=== PATIENT | male | born 1965 | race Caucasian/White ===

== ENCOUNTER 2016-11-04 22:48 | Inpatient (IN) | payer OTHER ==
[~2016-11-04] VITALS: Ht 188 cm; Wt 134.0 kg
[~2016-11-04 22:48] MED LIST: BAC PO; CEPHALEXIN500 MG PO; FUROSEMIDE80 MG PO; HYDROCODONE-ACETAMIN PO; LAC PO; LOM PO; LOMOTIL1 TAB PO; MACROBID100 MG PO; NEP PO; NOR5 PO; PRI20 PO; RENA-VITE1 TAB PO; RENAGEL; RENAGEL800 M1 PO; SENSIPAR90 MG PO; ZOLPIDEM5 M1 PO; [UNRECOGNIZED DRUG - OTHER]
[2016-11-05 00:35] LABS: BASOPHIL % 0.2 % (0-2); PLATELET COUNT 168 x10^3mcL (130-400); RED CELL DISTRIBUTION WIDTH 14.2 % (11.5-14.5)
[2016-11-05 00:41] LABS: BILIRUBIN TOTAL 0.5 mg/dL (0.20-1.00); CALCIUM 9.8 mg/dL (8.5-10.1); CARBON DIOXIDE 32.9 mmol/L (21-32); PHOSPHOROUS 3.4 mg/dL (2.5-4.9); POTASSIUM SERUM 3.8 mmol/L (3.5-5.1)
[2016-11-05 00:42] LABS: TOTAL PROTEIN, SERUM 8.6 g/dL (6.4-8.2)
[2016-11-05 00:43] LABS: CREATININE SERUM 7.4 mg/dL (0.7-1.3)
[2016-11-05 01:44] LABS: microscopic required? YES; urine erythrocyte 2+ (NEGATIVE)
[2016-11-05 02:44] LABS: AMYLASE 53 U/L (25-115); CHOLESTEROL 166 mg/dL (<200); LIPASE 204 IU/L (73-393)
[2016-11-05 02:54] LABS: FREE T4 0.99 ng/dL (0.76-1.46); FREE THYROXINE INDEX 3.2 ug/dL (1.4-4.5); T3 TOTAL 0.99 ng/mL; T4(THYROXINE) 8.5 ug/dL (4.7-13.3)
[2016-11-05 03:04] VITALS: BP 138/70
[2016-11-05 04:10] LABS: CHOLESTEROL/HDL RATIO 6.9; HDL CHOLESTEROL 24 mg/dL (40-60); TRIGLYCERIDES 559 mg/dL (<150)
[2016-11-05] MEDS ORDERED: LISINOPRIL10 MG PO (04:16)
[2016-11-05] MEDS ORDERED: VELPHORO500 MG PO (04:16)
[2016-11-05] MEDS ORDERED: RENVELA800 M1 PO (04:17)
[2016-11-05 05:00] LABS: BASOPHIL % 0.2 % (0-2); PLATELET COUNT 155 x10^3mcL (130-400); RED CELL DISTRIBUTION WIDTH 14.4 % (11.5-14.5)
[2016-11-05 06:21] VITALS: BP 122/82
[2016-11-05 07:43] LABS: AMPHETAMINE QUAL UR NONE DETECTED (NEG <=1000)
[2016-11-05 10:36] VITALS: BP 112/69
[2016-11-05 14:48] VITALS: BP 96/52
[2016-11-05 18:37] VITALS: BP 113/72
[2016-11-05 21:13] VITALS: BP 137/69
[2016-11-06 05:31] VITALS: BP 106/61
[2016-11-06 06:25] LABS: BASOPHIL % 0.6 % (0-2); PLATELET COUNT 142 x10^3mcL (130-400); RED CELL DISTRIBUTION WIDTH 14.4 % (11.5-14.5)
[2016-11-06 06:33] LABS: CALCIUM 9.6 mg/dL (8.5-10.1); CARBON DIOXIDE 27.9 mmol/L (21-32); POTASSIUM SERUM 4.5 mmol/L (3.5-5.1)
[2016-11-06 06:45] LABS: CREATININE SERUM 11.8 mg/dL (0.7-1.3)
[2016-11-06 10:19] VITALS: BP 126/74
[2016-11-06 13:44] VITALS: BP 94/57
[2016-11-06] MEDS ORDERED: LEVAQUIN750 MG PO (16:49)
[2016-11-06] MEDS ORDERED: BD LACTINEX1.4 MG PO (16:50)
[2016-11-06 17:03] VITALS: BP 94/57
[2016-11-06 17:59] VITALS: BP 109/62
[2016-11-07] MEDS ORDERED: BACTRIM1 TAB PO (12:53)
== END 2016-11-06 17:55 | disposition home or self-care (01) | DRG 463 ==
LOC: ED 22:48 → DU 11-05 01:51
PROVIDERS: Emergency Medicine; Family Medicine; ADMIT Family Medicine
PROC: 5A1D00Z (ICD-10-PCS; principal; 2016-11-06)
DX: N39.0 Urinary tract infection, site not specified (principal); N17.0 Acute kidney failure with tubular necrosis; E87.1 Hypo-osmolality and hyponatremia; E87.8 Other disorders of electrolyte and fluid balance, not elsewhere classified; E11.9 Type 2 diabetes mellitus without complications; B96.20 Unspecified Escherichia coli [E. coli] as the cause of diseases classified elsewhere; I12.0 Hypertensive chronic kidney disease with stage 5 chronic kidney disease or end stage renal disease; N18.6 End stage renal disease; E66.3 Overweight; Z99.2 Dependence on renal dialysis; Z87.891 Personal history of nicotine dependence; Z83.3 Family history of diabetes mellitus; Z82.49 Family history of ischemic heart disease and other diseases of the circulatory system; Z68.37 Body mass index [BMI] 37.0-37.9, adult
CPT/HCPCS: 82962; 83880; 84439; A4719; J2543; J3490; J7030; Q0092

== ENCOUNTER 2017-08-06 07:45 | Inpatient (IN) | payer OTHER ==
[~2017-08-06] VITALS: Ht 188 cm; Wt 136.6 kg
[~2017-08-06 07:45] MED LIST changes: +BACTRIM1 TAB PO; +BD LACTINEX1.4 MG PO; +LEVAQUIN750 MG PO; +LISINOPRIL10 MG PO; +RENVELA800 M1 PO; +VELPHORO500 MG PO
[2017-08-06 08:57] LABS: UA SPECIFIC GRAVITY 1.025 (1.005-1.035); microscopic required? YES; urine erythrocyte 1+ (NEGATIVE)
[2017-08-06 09:10] LABS: BASOPHIL % 0.1 % (0-2); PLATELET COUNT 362 x10^3mcL (130-400); RED CELL DISTRIBUTION WIDTH 14.4 % (11.5-14.5)
[2017-08-06 09:59] LABS: POTASSIUM SERUM 4.8 mmol/L (3.5-5.1)
[2017-08-06 10:00] LABS: CALCIUM 10.8 mg/dL (8.5-10.1); CARBON DIOXIDE 29.2 mmol/L (21-32)
[2017-08-06 10:02] LABS: BILIRUBIN TOTAL 0.46 mg/dL (0.20-1.00); CREATININE SERUM 10.6 mg/dL (0.7-1.3); TOTAL PROTEIN, SERUM 7.3 g/dL (6.4-8.2)
[2017-08-06 10:03] LABS: ALBUMIN 2.6 g/dL (3.4-5.0)
[2017-08-06] MEDS ORDERED: LISINOPRIL10 MG PO (10:27)
[2017-08-06] MEDS ORDERED: IBUPROFEN400 MG PO (10:28)
[2017-08-06] MEDS ORDERED: FLA500 PO (10:28)
[2017-08-06] MEDS ORDERED: RENAGEL800 M1 PO (10:28)
[2017-08-06] MEDS ORDERED: NORCO1 TA2 PO (10:29)
[2017-08-06] MEDS ORDERED: LEVOFLOXACIN500 M1 PO (10:29)
[2017-08-06] MEDS ORDERED: DOXYCYCLINE HY100 MG PO (10:30)
[2017-08-06 12:20] VITALS: BP 207/103
[2017-08-06 12:24] LABS: T3 TOTAL 0.66 ng/mL
[2017-08-06 12:33] LABS: MAGNESIUM 2.3 mg/dL (1.8-2.4); PHOSPHOROUS 7.9 mg/dL (2.5-4.9)
[2017-08-06 12:38] LABS: CHOLESTEROL/HDL RATIO 5.2
[2017-08-06 12:39] LABS: FREE T4 1.28 ng/dL (0.76-1.46); FREE THYROXINE INDEX 2.9 ug/dL (1.4-4.5); T4(THYROXINE) 7.9 ug/dL (4.7-13.3)
[2017-08-06 13:33] VITALS: BP 182/97
[2017-08-06 17:30] VITALS: BP 205/108
[2017-08-06 18:59] LABS: AMPHETAMINE QUAL UR NONE DETECTED (NEG <=1000)
[2017-08-06 21:07] VITALS: BP 178/102
[2017-08-06 22:52] VITALS: BP 163/92
[2017-08-07] VITALS (7 sets, daily range): BP systolic 144–166; BP diastolic 78–88
[2017-08-07 06:55] LABS: PLATELET COUNT 341 x10^3mcL (130-400)
[2017-08-07 07:21] LABS: BASOPHIL % 0 % (0-2); RED CELL DISTRIBUTION WIDTH 14.6 % (11.5-14.5)
[2017-08-07 08:01] LABS: CALCIUM 9.9 mg/dL (8.5-10.1); CARBON DIOXIDE 26.4 mmol/L (21-32); URIC ACID 9.3 mg/dL (3.5-7.2)
[2017-08-07 08:04] LABS: POTASSIUM SERUM 7.1 mmol/L (3.5-5.1)
[2017-08-07 08:05] LABS: CREATININE SERUM 12.8 mg/dL (0.7-1.3)
[2017-08-08 05:36] VITALS: BP 152/80
[2017-08-08 06:46] LABS: BASOPHIL % 0.4 % (0-2); PLATELET COUNT 368 x10^3mcL (130-400)
[2017-08-08 06:52] LABS: RED CELL DISTRIBUTION WIDTH 14.6 % (11.5-14.5)
[2017-08-08 06:53] LABS: CALCIUM 9.2 mg/dL (8.5-10.1); CARBON DIOXIDE 30.2 mmol/L (21-32)
[2017-08-08 10:32] VITALS: BP 157/82
[2017-08-08] MEDS ORDERED: BACTRIM DS1 TAB PO (13:39)
[2017-08-10 15:17] VITALS: Ht 188 cm; Wt 136.6 kg
== END 2017-08-08 14:27 | disposition home or self-care (01) | DRG 483 ==
LOC: ED 07:45 → DU 10:34
PROVIDERS: Emergency Medicine; Family Medicine; Internal Medicine; Student in an Organized Health Care Education/Training Program; Urology
PROC: 02HV33Z Insertion of Infusion Device into Superior Vena Cava, Percutaneous Approach (ICD-10-PCS; 2017-08-06)
PROC: B548ZZA Ultrasonography of Superior Vena Cava, Guidance (ICD-10-PCS; 2017-08-06)
PROC: 0VT90ZZ Resection of Right Testis, Open Approach (ICD-10-PCS; principal; 2017-08-06 18:30)
PROC: 5A1D70Z Performance of Urinary Filtration, Intermittent, Less than 6 Hours Per Day (ICD-10-PCS; 2017-08-07)
DX: N50.1 Vascular disorders of male genital organs (principal); N17.0 Acute kidney failure with tubular necrosis; N18.6 End stage renal disease; N45.1 Epididymitis; I12.0 Hypertensive chronic kidney disease with stage 5 chronic kidney disease or end stage renal disease; E11.22 Type 2 diabetes mellitus with diabetic chronic kidney disease; D64.9 Anemia, unspecified; Z53.29 Procedure and treatment not carried out because of patient's decision for other reasons; Z83.3 Family history of diabetes mellitus; Z82.49 Family history of ischemic heart disease and other diseases of the circulatory system; E83.39 Other disorders of phosphorus metabolism
CPT/HCPCS: 83880; 84439; 87491; 87591; 94150; J0360; J0885-EC; J1642; J1885; J2060; J2250; J2270; J2543; J3010; J3490; J7030; Q0092

== ENCOUNTER 2017-08-16 06:26 | Inpatient (IN) | payer OTHER ==
[~2017-08-16] VITALS: Ht 188 cm; Wt 136.1 kg
[~2017-08-16 06:26] MED LIST changes: +BACTRIM DS1 TAB PO; +DOXYCYCLINE HY100 MG PO; +FLA500 PO; +IBUPROFEN400 MG PO; +LEVOFLOXACIN500 M1 PO; +NORCO1 TA2 PO
[2017-08-16 07:32] LABS: PLATELET COUNT 460 x10^3mcL (130-400); RED CELL DISTRIBUTION WIDTH 15.2 % (11.5-14.5)
[2017-08-16 07:52] LABS: BILIRUBIN TOTAL 0.61 mg/dL (0.20-1.00); CALCIUM 10.1 mg/dL (8.5-10.1); CARBON DIOXIDE 23.8 mmol/L (21-32); POTASSIUM SERUM 4.8 mmol/L (3.5-5.1); TOTAL PROTEIN, SERUM 7.3 g/dL (6.4-8.2)
[2017-08-16 08:01] LABS: ALBUMIN 2.9 g/dL (3.4-5.0); CREATININE SERUM 12.3 mg/dL (0.7-1.3)
[2017-08-16 09:41] LABS: CHOLESTEROL/HDL RATIO 2.8; MAGNESIUM 2.2 mg/dL (1.8-2.4); PHOSPHOROUS 7.7 mg/dL (2.5-4.9)
[2017-08-16 09:49] LABS: T3 TOTAL 0.84 ng/mL
[2017-08-16 09:52] LABS: FREE T4 1.19 ng/dL (0.76-1.46); FREE THYROXINE INDEX 2.7 ug/dL (1.4-4.5); T4(THYROXINE) 7.1 ug/dL (4.7-13.3)
[2017-08-16 10:01] LABS: BAND NEUTROPHIL 3 % (0-10); BASOPHIL 0 % (0-2); MONOCYTE 12 % (0-7); SEGMENTED NEUTROPHILS 67 % (37-75)
[2017-08-16 10:02] LABS: PLATELET MORPHOLOGY PLATELETS INCREASED; rbc morphology (normal/abnorm) ABNORMAL (NORMAL)
[2017-08-16 12:18] VITALS: Ht 188 cm; Wt 136.1 kg
[2017-08-16 14:04] VITALS: BP 105/64
[2017-08-16 14:59] VITALS: BP 176/98
[2017-08-16 17:36] LABS: UA SPECIFIC GRAVITY 1.015 (1.005-1.035); microscopic required? YES; urine erythrocyte 3+ (NEGATIVE)
[2017-08-16 17:53] LABS: AMPHETAMINE QUAL UR NONE DETECTED (NEG <=1000)
[2017-08-16 18:09] VITALS: BP 164/77
[2017-08-16 21:24] VITALS: BP 148/79
[2017-08-17 06:04] VITALS: BP 132/77
[2017-08-17 06:16] LABS: CALCIUM 9.5 mg/dL (8.5-10.1); CARBON DIOXIDE 30.1 mmol/L (21-32); PHOSPHOROUS 8.6 mg/dL (2.5-4.9)
[2017-08-17 07:03] LABS: CREATININE SERUM 10.7 mg/dL (0.7-1.3); POTASSIUM SERUM 5.8 mmol/L (3.5-5.1)
[2017-08-17 07:33] LABS: BASOPHIL % 0.5 % (0-2); PLATELET COUNT 283 x10^3mcL (130-400)
[2017-08-17 07:38] LABS: RED CELL DISTRIBUTION WIDTH 15.4 % (11.5-14.5)
[2017-08-17 08:00] VITALS: BP 107/68
[2017-08-17 09:24] VITALS: BP 153/80
[2017-08-17 10:43] LABS: rbc morphology (normal/abnorm) ABNORMAL (NORMAL)
[2017-08-17 11:59] VITALS: BP 153/80
[2017-08-17 12:32] LABS: rbc morphology (normal/abnorm) NORMAL (NORMAL)
[2017-08-17] MEDS ORDERED: NEP PO (13:46)
[2017-08-17] MEDS ORDERED: METOPROLOL TART25 M1 PO (13:48)
[2017-08-17] MEDS ORDERED: LAC PO (13:50)
[2017-08-17] MEDS ORDERED: CEFTRIAXON1 GM/50 ML IV (13:50)
[2017-08-17 16:40] VITALS: BP 153/80
[2017-08-17 17:24] VITALS: BP 159/86
== END 2017-08-17 19:45 | disposition short-term general hospital (02) | DRG 468 ==
LOC: ED 06:26 → DU 09:28
PROVIDERS: Emergency Medicine; Family Medicine
PROC: 30233N1 Transfusion of Nonautologous Red Blood Cells into Peripheral Vein, Percutaneous Approach (ICD-10-PCS; principal; 2017-08-17)
DX: N28.89 Other specified disorders of kidney and ureter (principal); E11.22 Type 2 diabetes mellitus with diabetic chronic kidney disease; E44.0 Moderate protein-calorie malnutrition; I12.0 Hypertensive chronic kidney disease with stage 5 chronic kidney disease or end stage renal disease; E83.39 Other disorders of phosphorus metabolism; N39.0 Urinary tract infection, site not specified; N17.0 Acute kidney failure with tubular necrosis; N18.6 End stage renal disease; Z99.2 Dependence on renal dialysis; Z82.49 Family history of ischemic heart disease and other diseases of the circulatory system; Z83.3 Family history of diabetes mellitus; D64.9 Anemia, unspecified; Z68.39 Body mass index [BMI] 39.0-39.9, adult; E66.01 Morbid (severe) obesity due to excess calories
CPT/HCPCS: 84439; J0696; J0885-EC; J2270; J2405; J7030; J7050; P9016; Q0092; Q0163

== ENCOUNTER 2019-04-30 17:56 | Emergency (ER) | payer OTHER ==
[~2019-04-30] VITALS: Ht 182.9 cm; Wt 124.7 kg
[~2019-04-30 17:56] MED LIST changes: +CEFTRIAXON1 GM/50 ML IV; +METOPROLOL TART25 M1 PO
[2019-04-30 18:07] VITALS: Ht 182.9 cm; Wt 124.7 kg
[2019-04-30 18:48] LABS: BASOPHIL % 0.6 % (0-2); PLATELET COUNT 155 x10^3mcL (130-400); RED CELL DISTRIBUTION WIDTH 16.5 % (11.5-14.5)
[2019-04-30 19:10] LABS: ALBUMIN 3.6 g/dL (3.4-5.0); BILIRUBIN TOTAL 0.4 mg/dL (0.20-1.00); CALCIUM 8.6 mg/dL (8.5-10.1); CARBON DIOXIDE 31.3 mmol/L (21-32); POTASSIUM SERUM 3.7 mmol/L (3.5-5.1); TOTAL PROTEIN, SERUM 7.9 g/dL (6.4-8.2)
[2019-04-30 19:12] LABS: CREATININE SERUM 8.4 mg/dL (0.7-1.3)
[2019-04-30 20:47] VITALS: BP 144/87
== END 2019-04-30 20:47 | disposition home or self-care (01) ==
LOC: ED 17:56
PROVIDERS: Emergency Medicine
DX: B34.9 Viral infection, unspecified (principal); I12.0 Hypertensive chronic kidney disease with stage 5 chronic kidney disease or end stage renal disease; N18.6 End stage renal disease
CPT/HCPCS: 36415; 87804; J0696

== ENCOUNTER 2019-11-24 14:56 | Inpatient (IN) | payer OTHER ==
[~2019-11-24] VITALS: Ht 172.7 cm; Wt 129.7 kg
[2019-11-24 15:10] VITALS: Ht 172.7 cm; Wt 129.7 kg
[2019-11-24 16:32] LABS: BASOPHIL % 0.4 % (0-2); PLATELET COUNT 137 x10^3mcL (130-400)
[2019-11-24 16:34] LABS: RED CELL DISTRIBUTION WIDTH 16.7 % (11.5-14.5)
[2019-11-24 16:52] LABS: ALBUMIN 3.4 g/dL (3.4-5.0); ALKALINE PHOSPHATASE 282 U/L (46-116); ALT/SGPT 15 U/L (16-63); AST/SGOT 10 U/L (15-37); BILIRUBIN TOTAL 0.7 mg/dL (0.20-1.00); C REACTIVE PROTEIN 5.9 mg/dL (<=0.9); CALCIUM 9.1 mg/dL (8.5-10.1); CARBON DIOXIDE 19.8 mmol/L (21-32); CHLORIDE SERUM 96 mmol/L (98-107); GLUCOSE SERUM 75 mg/dL (74-106); LACTIC DEHYDROGENASE (LDH) 219 U/L (100-190); SODIUM SERUM 131 mmol/L (136-145); TOTAL PROTEIN, SERUM 7.4 g/dL (6.4-8.2)
[2019-11-24 16:58] LABS: CREATININE SERUM 15.6 mg/dL (0.7-1.3); GFR1 3 mL/min
[2019-11-25] VITALS (9 sets, daily range): BP systolic 113–188; BP diastolic 35–89
[2019-11-25 10:56] LABS: BASOPHIL % 0.1 % (0-2); PLATELET COUNT 125 x10^3mcL (130-400); RED CELL DISTRIBUTION WIDTH 16.8 % (11.5-14.5)
[2019-11-25 12:20] LABS: CALCIUM 9.7 mg/dL (8.5-10.1); CARBON DIOXIDE 19.3 mmol/L (21-32)
[2019-11-25 12:25] LABS: CHOLESTEROL/HDL RATIO 3.7
[2019-11-25 12:26] LABS: POTASSIUM SERUM 7.8 mmol/L (3.5-5.1)
[2019-11-26 01:46] LABS: CALCIUM 9.1 mg/dL (8.5-10.1); POTASSIUM SERUM 5.2 mmol/L (3.5-5.1)
[2019-11-26 01:48] LABS: CREATININE SERUM 13.6 mg/dL (0.7-1.3)
[2019-11-26 06:03] VITALS: BP 105/67
[2019-11-26 08:28] LABS: BASOPHIL % 0.2 % (0-2)
[2019-11-26 08:37] LABS: PLATELET COUNT 93 x10^3mcL (130-400); RED CELL DISTRIBUTION WIDTH 16.3 % (11.5-14.5)
[2019-11-26 08:50] LABS: CALCIUM 9.1 mg/dL (8.5-10.1); CARBON DIOXIDE 26.6 mmol/L (21-32); POTASSIUM SERUM 5.1 mmol/L (3.5-5.1)
[2019-11-26 08:53] LABS: CREATININE SERUM 14.4 mg/dL (0.7-1.3)
[2019-11-26 09:37] VITALS: BP 124/74
[2019-11-26 17:30] VITALS: BP 140/79
[2019-11-26 21:20] VITALS: BP 98/52
[2019-11-27 05:28] VITALS: BP 106/58
[2019-11-27 07:28] LABS: BASOPHIL % 0.1 % (0-2)
[2019-11-27 07:45] LABS: PLATELET COUNT 91 x10^3mcL (130-400)
[2019-11-27 07:52] LABS: CALCIUM 8.5 mg/dL (8.5-10.1); CARBON DIOXIDE 23.9 mmol/L (21-32); POTASSIUM SERUM 5.3 mmol/L (3.5-5.1)
[2019-11-27 07:59] LABS: CREATININE SERUM 16.4 mg/dL (0.7-1.3)
[2019-11-27 08:29] VITALS: BP 103/56
[2019-11-27 13:36] VITALS: BP 138/49
[2019-11-27 16:27] VITALS: BP 152/50
[2019-11-27 20:43] VITALS: BP 124/62
[2019-11-28 04:57] VITALS: BP 103/59
[2019-11-28 08:09] LABS: BASOPHIL % 0.1 % (0-2)
[2019-11-28 08:10] VITALS: BP 99/58
[2019-11-28 08:20] LABS: CALCIUM 8.1 mg/dL (8.5-10.1); CARBON DIOXIDE 21.9 mmol/L (21-32); PLATELET COUNT 93 x10^3mcL (130-400); POTASSIUM SERUM 5.3 mmol/L (3.5-5.1); RED CELL DISTRIBUTION WIDTH 16.5 % (11.5-14.5)
[2019-11-28 17:04] VITALS: BP 114/61
[2019-11-28 20:16] VITALS: BP 122/53
[2019-11-29 04:55] VITALS: BP 157/73
[2019-11-29 06:59] LABS: BASOPHIL % 0.1 % (0-2)
[2019-11-29 07:22] LABS: PLATELET COUNT 109 x10^3mcL (130-400)
[2019-11-29 08:46] LABS: CALCIUM 8.6 mg/dL (8.5-10.1); CARBON DIOXIDE 19.8 mmol/L (21-32); POTASSIUM SERUM 5.1 mmol/L (3.5-5.1)
[2019-11-29 08:51] LABS: CREATININE SERUM 15.2 mg/dL (0.7-1.3)
[2019-11-29 09:15] VITALS: BP 111/56
[2019-11-29 13:21] VITALS: BP 96/54
[2019-11-29 17:16] VITALS: BP 140/80
[2019-11-29 20:37] VITALS: BP 134/63
[2019-11-29 22:31] VITALS: BP 136/68
[2019-11-30 05:15] VITALS: BP 107/51
[2019-11-30 09:32] VITALS: BP 126/59
[2019-11-30 12:10] LABS: PLATELET COUNT 148 x10^3mcL (130-400)
[2019-11-30 12:16] LABS: CALCIUM 8.7 mg/dL (8.5-10.1); CARBON DIOXIDE 25.1 mmol/L (21-32); POTASSIUM SERUM 4.7 mmol/L (3.5-5.1)
[2019-11-30 12:18] LABS: CREATININE SERUM 12.8 mg/dL (0.7-1.3)
[2019-11-30 12:24] LABS: RED CELL DISTRIBUTION WIDTH 16.7 % (11.5-14.5)
[2019-11-30 13:10] LABS: BAND NEUTROPHIL 0 % (0-10); MONOCYTE 10 % (0-7); SEGMENTED NEUTROPHILS 79 % (37-75); rbc morphology (normal/abnorm) NORMAL (NORMAL)
[2019-11-30 14:23] VITALS: BP 150/64
[2019-11-30 18:50] VITALS: BP 140/70
[2019-11-30 22:23] VITALS: BP 141/65
[2019-12-01 05:25] VITALS: BP 124/64
[2019-12-01 09:15] VITALS: BP 133/69
[2019-12-01 13:09] VITALS: BP 147/77
[2019-12-01 14:00] VITALS: BP 136/103
[2019-12-01 22:16] VITALS: BP 148/79
[2019-12-02 06:17] VITALS: BP 154/80
[2019-12-02 09:58] VITALS: BP 179/78
[2019-12-02 13:37] VITALS: BP 177/93
[2019-12-02 17:23] LABS: PLATELET COUNT 346 x10^3mcL (130-400)
[2019-12-02 17:42] LABS: RED CELL DISTRIBUTION WIDTH 16.7 % (11.5-14.5)
[2019-12-02 18:17] VITALS: BP 162/96
[2019-12-02 18:17] LABS: BAND NEUTROPHIL 4 % (0-10); BASOPHIL 4 % (0-2); MONOCYTE 9 % (0-7); SEGMENTED NEUTROPHILS 73 % (37-75); rbc morphology (normal/abnorm) NORMAL (NORMAL)
[2019-12-02 19:08] LABS: CALCIUM 8.8 mg/dL (8.5-10.1); CARBON DIOXIDE 18.7 mmol/L (21-32)
[2019-12-02 19:11] LABS: CREATININE SERUM 12.6 mg/dL (0.7-1.3); POTASSIUM SERUM 5.8 mmol/L (3.5-5.1)
[2019-12-02 20:54] VITALS: BP 171/80
[2019-12-02 22:05] VITALS: BP 158/87
[2019-12-03 05:31] VITALS: BP 161/71
[2019-12-03 08:33] LABS: PLATELET COUNT 314 x10^3mcL (130-400)
[2019-12-03 08:41] VITALS: BP 132/75
[2019-12-03 08:49] LABS: CALCIUM 7.9 mg/dL (8.5-10.1); CARBON DIOXIDE 19.2 mmol/L (21-32); POTASSIUM SERUM 5.5 mmol/L (3.5-5.1)
[2019-12-03 08:55] LABS: CREATININE SERUM 13.1 mg/dL (0.7-1.3)
[2019-12-03 09:52] LABS: RED CELL DISTRIBUTION WIDTH 16.6 % (11.5-14.5)
[2019-12-03 09:54] LABS: MONOCYTE 7 % (0-7); PLATELET MORPHOLOGY PLATELETS NORMAL; SEGMENTED NEUTROPHILS 84 % (37-75); rbc morphology (normal/abnorm) NORMAL (NORMAL)
[2019-12-03 12:12] VITALS: BP 123/65
[2019-12-03 16:08] VITALS: BP 116/59
[2019-12-03 22:46] VITALS: BP 98/47
[2019-12-04] VITALS (8 sets, daily range): BP systolic 105–144; BP diastolic 32–62
[2019-12-04 01:41] LABS: PLATELET COUNT 247 x10^3mcL (130-400)
[2019-12-04 01:43] LABS: BASOPHIL % 0 % (0-2); RED CELL DISTRIBUTION WIDTH 16.5 % (11.5-14.5)
[2019-12-04 02:01] LABS: rbc morphology (normal/abnorm) ABNORMAL (NORMAL)
[2019-12-04 19:13] LABS: PLATELET COUNT 295 x10^3mcL (130-400)
[2019-12-04 19:15] LABS: CARBON DIOXIDE 27.3 mmol/L (21-32); PHOSPHOROUS 4.9 mg/dL (2.5-4.9); POTASSIUM SERUM 3.6 mmol/L (3.5-5.1)
[2019-12-04 19:27] LABS: CREATININE SERUM 6.1 mg/dL (0.7-1.3)
[2019-12-04 19:43] LABS: BAND NEUTROPHIL 0 % (0-10); BASOPHIL 0 % (0-2); MONOCYTE 7 % (0-7); PLATELET MORPHOLOGY PLATELETS NORMAL; SEGMENTED NEUTROPHILS 84 % (37-75); rbc morphology (normal/abnorm) ABNORMAL (NORMAL)
[2019-12-05 02:00] VITALS: BP 141/62
[2019-12-05 05:57] VITALS: BP 134/50
[2019-12-05 06:41] LABS: PLATELET COUNT 246 x10^3mcL (130-400)
[2019-12-05 06:43] LABS: CALCIUM 7.5 mg/dL (8.5-10.1); CARBON DIOXIDE 24.8 mmol/L (21-32); POTASSIUM SERUM 4.7 mmol/L (3.5-5.1)
[2019-12-05 06:46] LABS: CREATININE SERUM 8.6 mg/dL (0.7-1.3)
[2019-12-05 06:55] LABS: RED CELL DISTRIBUTION WIDTH 15.8 % (11.5-14.5)
[2019-12-05 08:20] VITALS: BP 118/55
[2019-12-05 11:31] LABS: BAND NEUTROPHIL 2 % (0-10); MONOCYTE 8 % (0-7); SEGMENTED NEUTROPHILS 77 % (37-75); rbc morphology (normal/abnorm) ABNORMAL (NORMAL)
[2019-12-05 12:33] VITALS: BP 101/56
[2019-12-05 16:49] VITALS: BP 126/63
[2019-12-05 21:00] VITALS: BP 170/46
[2019-12-06] VITALS (10 sets, daily range): BP systolic 112–186; BP diastolic 47–77
[2019-12-06 11:02] LABS: PLATELET COUNT 334 x10^3mcL (130-400)
[2019-12-06 11:12] LABS: RED CELL DISTRIBUTION WIDTH 15.8 % (11.5-14.5)
[2019-12-06 11:18] LABS: CALCIUM 7.9 mg/dL (8.5-10.1); CARBON DIOXIDE 28.3 mmol/L (21-32); POTASSIUM SERUM 4.4 mmol/L (3.5-5.1)
[2019-12-06 11:38] LABS: MONOCYTE 5 % (0-7); SEGMENTED NEUTROPHILS 82 % (37-75); rbc morphology (normal/abnorm) ABNORMAL (NORMAL)
[2019-12-06 11:41] LABS: CREATININE SERUM 7.3 mg/dL (0.7-1.3)
[2019-12-07 05:45] VITALS: BP 166/80
[2019-12-07 06:35] LABS: PLATELET COUNT 365 x10^3mcL (130-400)
[2019-12-07 06:42] LABS: CALCIUM 7.3 mg/dL (8.5-10.1); CARBON DIOXIDE 25.1 mmol/L (21-32); POTASSIUM SERUM 4.4 mmol/L (3.5-5.1)
[2019-12-07 06:43] LABS: CREATININE SERUM 9.4 mg/dL (0.7-1.3)
[2019-12-07 07:00] LABS: RED CELL DISTRIBUTION WIDTH 16.2 % (11.5-14.5)
[2019-12-07 08:33] VITALS: BP 157/90
[2019-12-07 12:19] VITALS: BP 119/46
[2019-12-07 12:27] LABS: MONOCYTE 10 % (0-7); SEGMENTED NEUTROPHILS 78 % (37-75); rbc morphology (normal/abnorm) ABNORMAL (NORMAL)
[2019-12-07 17:08] VITALS: BP 117/75
[2019-12-07 21:34] VITALS: BP 159/73
[2019-12-07 22:49] VITALS: BP 151/70
[2019-12-08 04:47] VITALS: BP 149/31
[2019-12-08 07:38] LABS: PLATELET COUNT 336 x10^3mcL (130-400)
[2019-12-08 07:39] LABS: RED CELL DISTRIBUTION WIDTH 15.9 % (11.5-14.5)
[2019-12-08 10:43] LABS: MONOCYTE 12 % (0-7); SEGMENTED NEUTROPHILS 73 % (37-75); rbc morphology (normal/abnorm) ABNORMAL (NORMAL)
[2019-12-08 12:38] VITALS: BP 134/68
[2019-12-08 16:29] VITALS: BP 165/81
[2019-12-08 19:30] VITALS: BP 143/47
[2019-12-09 05:15] VITALS: BP 142/69
[2019-12-09 08:13] VITALS: BP 151/74
[2019-12-09 09:02] LABS: PLATELET COUNT 358 x10^3mcL (130-400); RED CELL DISTRIBUTION WIDTH 15.8 % (11.5-14.5)
[2019-12-09 11:40] LABS: MONOCYTE 7 % (0-7); SEGMENTED NEUTROPHILS 83 % (37-75); rbc morphology (normal/abnorm) ABNORMAL (NORMAL)
[2019-12-09 12:21] VITALS: BP 153/76
[2019-12-09 17:10] VITALS: BP 166/85
[2019-12-09 21:33] VITALS: BP 158/73
[2019-12-10] VITALS (7 sets, daily range): BP systolic 118–183; BP diastolic 57–93
[2019-12-10 06:57] LABS: PLATELET COUNT 343 x10^3mcL (130-400)
[2019-12-10 07:25] LABS: RED CELL DISTRIBUTION WIDTH 15.6 % (11.5-14.5)
[2019-12-10 11:54] LABS: MONOCYTE 5 % (0-7); SEGMENTED NEUTROPHILS 82 % (37-75)
[2019-12-10 11:55] LABS: rbc morphology (normal/abnorm) ABNORMAL (NORMAL)
[2019-12-11 05:10] VITALS: BP 169/82
[2019-12-11 06:57] LABS: CARBON DIOXIDE 22.8 mmol/L (21-32); PLATELET COUNT 392 x10^3mcL (130-400); POTASSIUM SERUM 4.4 mmol/L (3.5-5.1)
[2019-12-11 07:23] LABS: CREATININE SERUM 12.4 mg/dL (0.7-1.3)
[2019-12-11 07:28] LABS: RED CELL DISTRIBUTION WIDTH 15.2 % (11.5-14.5)
[2019-12-11 10:05] LABS: MONOCYTE 8 % (0-7); SEGMENTED NEUTROPHILS 78 % (37-75); rbc morphology (normal/abnorm) ABNORMAL (NORMAL)
[2019-12-11 17:03] VITALS: BP 151/73
[2019-12-11 20:30] VITALS: BP 196/81
[2019-12-11 22:02] VITALS: BP 158/72
[2019-12-12] VITALS (7 sets, daily range): BP systolic 100–209; BP diastolic 51–95
[2019-12-13] VITALS (8 sets, daily range): BP systolic 141–189; BP diastolic 55–99
[2019-12-13 07:15] LABS: PLATELET COUNT 406 x10^3mcL (130-400); RED CELL DISTRIBUTION WIDTH 15.4 % (11.5-14.5)
[2019-12-13 07:25] LABS: CALCIUM 7.2 mg/dL (8.5-10.1); CARBON DIOXIDE 21.3 mmol/L (21-32); POTASSIUM SERUM 4.4 mmol/L (3.5-5.1)
[2019-12-13 07:29] LABS: CREATININE SERUM 12.1 mg/dL (0.7-1.3)
[2019-12-13 11:48] LABS: URIC ACID 7.5 mg/dL (3.5-7.2)
[2019-12-13 12:17] LABS: C REACTIVE PROTEIN 22.8 mg/dL (<=0.9)
== END 2019-12-13 23:45 | disposition short-term general hospital (02) | DRG 720 ==
LOC: ED 14:56 → DU 19:12
PROVIDERS: Emergency Medicine; Hospitalist; Internal Medicine; ADMIT Internal Medicine; ATTEND Internal Medicine
PROC: 5A1D70Z Performance of Urinary Filtration, Intermittent, Less than 6 Hours Per Day (ICD-10-PCS; 2019-11-24)
PROC: 06HY33Z Insertion of Infusion Device into Lower Vein, Percutaneous Approach (ICD-10-PCS; 2019-11-25)
PROC: 5A1D70Z Performance of Urinary Filtration, Intermittent, Less than 6 Hours Per Day (ICD-10-PCS; 2019-11-25)
PROC: 5A1D70Z Performance of Urinary Filtration, Intermittent, Less than 6 Hours Per Day (ICD-10-PCS; 2019-11-28)
PROC: 5A1D70Z Performance of Urinary Filtration, Intermittent, Less than 6 Hours Per Day (ICD-10-PCS; 2019-11-29)
PROC: 5A1D70Z Performance of Urinary Filtration, Intermittent, Less than 6 Hours Per Day (ICD-10-PCS; 2019-11-30)
PROC: 5A1D70Z Performance of Urinary Filtration, Intermittent, Less than 6 Hours Per Day (ICD-10-PCS; 2019-12-01)
PROC: 0JH63XZ Insertion of Tunneled Vascular Access Device into Chest Subcutaneous Tissue and Fascia, Percutaneous Approach (ICD-10-PCS; 2019-12-01)
PROC: 02HV33Z Insertion of Infusion Device into Superior Vena Cava, Percutaneous Approach (ICD-10-PCS; 2019-12-01)
PROC: B548ZZA Ultrasonography of Superior Vena Cava, Guidance (ICD-10-PCS; 2019-12-01)
PROC: 5A1D70Z Performance of Urinary Filtration, Intermittent, Less than 6 Hours Per Day (ICD-10-PCS; 2019-12-03)
PROC: 5A1D70Z Performance of Urinary Filtration, Intermittent, Less than 6 Hours Per Day (ICD-10-PCS; 2019-12-04)
PROC: 30233N1 Transfusion of Nonautologous Red Blood Cells into Peripheral Vein, Percutaneous Approach (ICD-10-PCS; 2019-12-04)
PROC: 0DB68ZX Excision of Stomach, Via Natural or Artificial Opening Endoscopic, Diagnostic (ICD-10-PCS; 2019-12-06)
PROC: 5A1D70Z Performance of Urinary Filtration, Intermittent, Less than 6 Hours Per Day (ICD-10-PCS; 2019-12-06)
PROC: 5A1D70Z Performance of Urinary Filtration, Intermittent, Less than 6 Hours Per Day (ICD-10-PCS; 2019-12-08)
PROC: 5A1D70Z Performance of Urinary Filtration, Intermittent, Less than 6 Hours Per Day (ICD-10-PCS; 2019-12-11)
PROC: 5A1D70Z Performance of Urinary Filtration, Intermittent, Less than 6 Hours Per Day (ICD-10-PCS; principal; 2019-12-13)
DX: A41.01 Sepsis due to Methicillin susceptible Staphylococcus aureus (principal); E11.22 Type 2 diabetes mellitus with diabetic chronic kidney disease; K26.4 Chronic or unspecified duodenal ulcer with hemorrhage; I12.0 Hypertensive chronic kidney disease with stage 5 chronic kidney disease or end stage renal disease; E66.01 Morbid (severe) obesity due to excess calories; T82.9XXA Unspecified complication of cardiac and vascular prosthetic device, implant and graft, initial encounter; K29.71 Gastritis, unspecified, with bleeding; N18.6 End stage renal disease; E87.1 Hypo-osmolality and hyponatremia; E87.5 Hyperkalemia; Z20.828 Contact with and (suspected) exposure to other viral communicable diseases; Y83.9 Surgical procedure, unspecified as the cause of abnormal reaction of the patient, or of later complication, without mention of misadventure at the time of the procedure; Y92.89 Other specified places as the place of occurrence of the external cause; Z99.2 Dependence on renal dialysis; D64.9 Anemia, unspecified; E66.9 Obesity, unspecified; Z71.3 Dietary counseling and surveillance; K20.8 Other esophagitis; Z68.41 Body mass index [BMI] 40.0-44.9, adult
CPT/HCPCS: 43235; 82962; 83880; 85378; 87804; 97110-GP; 97116-GP; 97530-GP; C1751; C1884; C9113; G0378; J0885-EC; J1200; J1610; J1642; J1644; J1940; J2001; J2060; J2250; J2270; J2310; J2405; J3010; J3370; J3490; J7030; J7040; J7050; P9016; P9047; Q0092; Q0163; Q9967; U0003-CS